=== PATIENT | female | born 1955 | race Caucasian/White ===

== ENCOUNTER 2023-01-25 09:15 | Emergency (ER) | payer MEDICARE, SELFPAY ==
[2023-01-25 09:20] VITALS: BP 154/96; PULSE 99; RESP 17; TEMP 36.6; O2SAT 99; BMI 31.6
--- NOTE | 2023-01-25 09:25 | ED_ITS ---
HPI - Wound/Laceration General Chief Complaint: Wound/Laceration Stated Complaint: L index finger laceration Time Seen by Provider: 01/25/23 09:25 Source: patient Mode of arrival: ambulatory Limitations: no limitations History of Present Illness HPI narrative: 67-year-old xjmiy-fjak-vdvumovg female presents to the ER for evaluation of a superficial laceration to the tip of her 2nd left digit, occurred cutting w atermelon just prior to arrival. Patient was unable to control the bleeding well at home so she came to the ER for evaluation. She states the cut is a small flap at the tip of her left index finger. She is able to extend and flex the finger. Denies numbness or tingling. She is unsure of her last tetanus shot. Onset (ago): minute(s) Extremity Location: left: hand ( Left index finger) Place: home Patient tetanus UTD: No Context: accidental Associated symptoms: pain Treatments prior to arrival: bandage Related Data Allergies Allergy/AdvReac Type Severity Reaction Status Date / Time penicillin V Allergy Unknown Seizure Verified 01/25/23 09:20 Dhsjrga-YWT-XcN Reductase Allergy Stomach Verified 01/25/23 09:20 Inhibitor Upset Penicillins [PENICILLINS] AdvReac Unknown UNKNOWN Verified 01/25/23 09:20 Review of Systems Review of Systems: Yes all other systems are reviewed and are negative Physical Exam Vital Signs: Vital Signs: Last Vital Signs Temp 98 F 01/25/23 09:20 Pulse 99 01/25/23 09:20 Resp 17 01/25/23 09:20 BP 154/96 H 01/25/23 09:20 Pulse Ox 99 01/25/23 09:20 O2 Del Method Room Air 01/25/23 09:20 BMI result Body Mass Index 31.6 Appearance: Alert. Oriented X3. No acute distress. HEENT: normal inspection CVS: Normal heart rate and rhythm. Pulses normal. Respiratory: No respiratory distress. Skin: Skin warm and dry. Normal skin color. Normal skin turgor. No rashes. Extremities: tip of the left index finger with a small, less than 1 cm flap at the distal pulp, no active bleeding. No nail involvement. Normal flexion of the PIP and DIP. Cap refill less than 3 seconds. Neuro: Oriented X 3. grossly normal, nonfocal Medical Decision Making Medical Decision Making MDM Narrative: 67-year-old female presenting to the ER for evaluation of a minor, partial avulsion to the tip of the left index finger sustained cutting watermelon just prior to arrival. No active bleeding. Wound is very superficial. No need for imaging today. No need for antibiotics. Wound was able to be cleansed with normal saline and secured closed with exofin skin glue. Patient was counseled on wound care. She was given a tetanus shot today. She is stable for discharge home. Differential Diagnosis Differential Diagnoses: The differential diagnosis associated with the presentation includes superficial avulsion, deep laceration, superficial laceration Independent Historian Clinical information obtained from an independent historian. History obtained from or confirmed by: Spouse Prescription Management I considered prescription management with: Pain Medication Procedures Laceration Laceration 1: Site: hand Side (If applicable): left Description: flap Depth: simple, single layer Pre-repair: irrigated extensively Skin layer closed with: other (exofin skin glue) Critical Care Time Critical Care Time Critical Care Time: No Discharge Plan Discharge Clinical Impression: Finger laceration Patient Disposition: Home, Self-Care Instructions: Finger Laceration (ED) Additional Instructions: Skin glue was used to close your wound. Do not get wet for 24-48 hours. Gently wash with soap and water then pat dry. This glue will come off on its own, usually within a week. Do not peel it off. Your given a tetanus shot today, this is good for 10 years. Follow-up with your doctor as needed.
--- NOTE | 2023-01-25 09:31 | PC.NURSE ---
pt a&ox3, pt states she cut her lt index finger with a watermelon knife, pt states she is unsure last tetanus shot, family at bedside, call naik within reach, will continue to monitor
--- NOTE | 2023-01-25 09:46 | MHC.EDTECH ---
left index finger was wrapped with stretch bandage with PA orders. pt tolerated well
[2023-01-25] MEDS: Diphth,Pertus(ACell),Tet Adult 0.5 ML SYRINGE IM (09:51)
== END 2023-01-25 09:56 | disposition home or self-care (01) ==
PROVIDERS: Emergency Provider Internal Medicine; PCP Internal Medicine
DX: S61.211A Laceration without foreign body of left index finger without damage to nail, initial encounter (principal); S60.512A Abrasion of left hand, initial encounter; W26.0XXA Contact with knife, initial encounter; Y93.G3 Activity, cooking and baking; Y92.000 Kitchen of unspecified non-institutional (private) residence as the place of occurrence of the external cause; Y99.9 Unspecified external cause status; Z79.899 Other long term (current) drug therapy; Z23 Encounter for immunization
CPT/HCPCS: 12001; 90471; 90715; 99282; 99283; 99284

== ENCOUNTER → 2023-08-22 09:15 | Outpatient (BNVA) | payer MEDICARE, SELFPAY | PROVIDERS: PCP Internal Medicine; Visit Provider Physician Assistant Surgical ==

== ENCOUNTER 2023-09-13 11:00 | Outpatient (AMB) | payer MEDICARE, SELFPAY ==
--- NOTE | 2023-09-13 10:42 | MHC.OFFVISWM ---
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 Her goal is to lose about 30 lbs. She reports first being concerned about her weight last year or two.. She has tried multiple methods of weight loss including WW and TOPS program without permanent results. She lives with her , depressed and suicidall.She is retired. She wakes at: 7am bed at 9-10 pm Breakfast: 8 am - bowl of berries with banana, toast or mini bagel with butter or jam, 1 hb egg. water Lunch: 12 pm- [facility] - 1-2 d/wk. Chicken breast with broccoli - may have rice or potatoes. At home - sandwich or turkey or chicken or meat loaf. popcorn.water or diet pepsi - decaf Dinner: 5pm - May have sandwich or chicken, broccoli and a carb.water After dinner: not regular snacks Other snacks: popcorn or mini pretzels, pistachios or other nuts - 1/4 cup. Dark chocolate covered almonds Liquids: no regular soda, no fruit juice Alcohol intake: very rare, tobacco: never, marijuana: none Exercise: rare walking. No acess to gym equipment. Started chair yoga daily last 5 days. IDALMIS:0 ESS:5 GERD:3 QOL:54 Assessment & Plan Assessment & Plan (1) Obesity: Code(s): E66.9 - Obesity, unspecified Plan: This is a 67 yo woman with obesity and pre DM who will start MWL program. Blood work not ordered. She will start M[facility] classes and watch all classes before her appt with Bhumi. Recent blood work June 2023 - TSH - normal, HgbA1c - 6.0, average glucose 126, cholesterol 233, high trigylcerides 300, HDL 51, LDL 124. Vit D- 2021 Does not like yogurt or cottage cheese. 1. Adequate sleep of 7-8 hours per night discussed 2. Healthy meal plan - stop all fruit juice All meals/MR's need to take 20 minutes to complete 7 am - 3 eggs and 1/2 c vegetables or Protein shake 12 pm -same as senior 6-4 -7 bread - Ivan Killer bread thin slice - 4 oz protein -4 - 6 oz vegetables 3 pm- fresh fruit 1 cup berries - hb egg, 2 TBL nut butter 6 pm- dinner of 6 oz lean protein, 6 oz vegetable, 1/2 cup of carbs Exercise -Chair Yoga daily. LS 2 miles - 3 d/ week, then increase to 5 d/week. Pt will weigh herself weekly. Next appt with Bhumi in 4 weeks and me in 8 weeks.. Text me with any questions and weekly weights. Patient is morbidly obese and is not considered stable at this time.?I spent a total of 60 minutes reviewing/updating records, examining the patient and counseling the patient on weight management as detailed above. (2) HTN (hypertension), benign: Code(s): I10 - Essential (primary) hypertension Plan: no changes (3) Pre-diabetes: Code(s): R73.03 - Prediabetes Plan: dietary changes (4) Hyperlipidemia: Code(s): E78.5 - Hyperlipidemia, unspecified Plan see above Telehealth Telehealth Location of provider rendering services: practice address Location of patient: address on file Patient Identification confirmed using: Name, : Yes Telehealth method: voice only Patient verbally consented to treatment: Yes Patient verbally consented to billing insurance company: Yes Patient informed of any privacy concerns related to visit: Yes Coding Level of Care Code Tele New Pt Level 5 (10930) Diagnoses Obesity E66.9 HTN (hypertension), benign I10 Pre-diabetes R73.03 Hyperlipidemia E78.5
== END 2023-09-13 12:02 | disposition home or self-care (01) ==
LOC: HO.HBS 11:24
PROVIDERS: PCP Internal Medicine; Visit Provider Physician Assistant
DX: E66.9 Obesity, unspecified (principal); Z68.34 Body mass index [BMI] 34.0-34.9, adult; I10 Essential (primary) hypertension; R73.03 Prediabetes; E78.5 Hyperlipidemia, unspecified
CPT/HCPCS: 99443

== ENCOUNTER → 2023-09-13 11:00 | Outpatient (BNVA) | payer MEDICARE, SELFPAY | PROVIDERS: PCP Internal Medicine; Visit Provider Physician Assistant ==

== ENCOUNTER 2023-10-14 10:25 | Outpatient (AMB) | payer MEDICARE, SELFPAY ==
--- NOTE | 2023-10-14 10:17 | MHC.AMNUTRGE ---
Intake VS Expanded 10/15/23 08:13 Height 5 ft 4 in Weight 197 lb BMI 33.8 Intake Visit Reasons: (TV) Initial Nutrition [facility] [employer] Driver Required: No Allergies shellfish derived Allergy (Severe, Verified 10/15/23 08:12) Facial Swelling penicillin V Allergy (Unknown, Verified 01/25/23 09:20) Seizure Aeuphlc-VNA-HqE Reductase Inhibitor Allergy (Verified 01/25/23 09:20) Stomach Upset Penicillins [PENICILLINS] Adverse Reaction (Unknown, Verified 01/25/23 09:20) UNKNOWN HPI Nutrition Presentation Details Medical weight loss starting weight 199# current weight 197# Reason for consult elevated BMI Food allergies/aversions Yes (shellfish - swelling in face, welts on the body ) Diet Assmnt Details I am not doing as well as I had hoped ; feeling discouraged by rate of weight loss. it is important for her to be able to go out to restaurants and socialize and she acknowledges this may have an impact on her weight loss. We talked about doing the best she can making food choices 2 eggs, imelda killer bread Lunch: 1/2 sandwich with chicken - pt asks about using bar/shakes dinner last night: veggie pizza and german fries baked sweet potato, steamed carrots and meatloaf (made w crackers, egg) Exercise: Minimal but is looking for more resources Dietary counseling reduction Who buys your food self Who prepares/cooks your food self Lifestyle Eating out 4 or more times/week Food frequency Dairy: daily, Fruit: daily, Vegetables: daily, Grains/pasta/breads/cereal (carbs): daily, Meats/poultry/fish (protein): daily, Meat substitutes/nuts/seeds/legumes: daily, Processed foods/meats: daily, Restaurants/fast foods: daily (dislikes fish ), Water: daily, Juice: never, Coffee: never and Sports/energy drinks: never Diagnosis Nutrition problem #1 overweight/obesity As related to (etiology) #1 excess energy intake and physical inactivity As evidenced by (sign/symptom) #1 high BMI Monitoring/Goals Nutrition problem monitoring total energy intake, level of knowledge/skill, total PRO intake, total CHO intake, weight and oral fluids Outcome progress progressing Learning/Education Readiness to learn excellent Stages of change action Educational materials provided Yes Most Recent Diabetes Results: No Data to Display Assessment & Plan Assessment & Plan (1) Obesity (BMI 30-39.9): Code(s): E66.9 - Obesity, unspecified Plan provided exercise resources, discussed using a shake or bar for lunch as she doesn't care to eat lunch anyway, provided educational nutrition handouts. Telehealth Telehealth Location of provider rendering services: practice address Location of patient: address on file Patient Identification confirmed using: Name, : Yes Telehealth method: voice only Patient verbally consented to treatment: Yes Patient verbally consented to billing insurance company: Yes Patient informed of any privacy concerns related to visit: Yes Minutes spent on Phone/Video with Pt.: 50 Coding Level of Care Code Nutr Indiv Intake (03268) Diagnoses Obesity (BMI 30-39.9) E66.9 Time Spent (min) 50
[2023-10-15 08:13] VITALS: BMI 33.8
== END 2023-10-14 11:03 | disposition home or self-care (01) ==
LOC: HO.HBS 10:26
PROVIDERS: PCP Internal Medicine; Visit Provider Dietitian, Registered
DX: E66.9 Obesity, unspecified (principal)

== ENCOUNTER → 2023-10-14 10:25 | Outpatient (BNVA) | payer MEDICARE, SELFPAY | PROVIDERS: PCP Internal Medicine; Visit Provider Dietitian, Registered | DX: E66.9 Obesity, unspecified (principal); Z68.33 Body mass index [BMI] 33.0-33.9, adult | CPT/HCPCS: 97802 ==

== ENCOUNTER 2023-11-15 10:00 | Outpatient (AMB) | payer MEDICARE, SELFPAY ==
--- NOTE | 2023-11-15 09:09 | A.OFFVIS_ITS ---
Intake VS Expanded 11/15/23 10:06 Height 5 ft 4 in Weight 193 lb 6 oz BMI 33.2 Intake Visit Reasons: TV F/U M[facility] Allergies shellfish derived Allergy (Severe, Verified 10/15/23 08:12) Facial Swelling penicillin V Allergy (Unknown, Verified 01/25/23 09:20) Seizure Qvvctft-UZN-MnD Reductase Inhibitor Allergy (Verified 01/25/23 09:20) Stomach Upset Penicillins [PENICILLINS] Adverse Reaction (Unknown, Verified 01/25/23 09:20) UNKNOWN HPI HPI Comments History of Present Illness Details 67 yo woman started MWL program August at 199.8 lbs with the intention of losing 30 lbs. She saw Bhumi last month. TBWL is 3.4 lbs or 1.7%. Stopped all fruit juice, and deserts. breakfast -7am fruit with 2 hb eggs and 1 slice Ivan Killer bread with olive oil margarine 12 - 1pm - ham or turkey sandwich, popco rn. water or diet Pepsi 5-6 pm - protein bar or popcorn and wate r The following was the plan: 7 am - 3 eggs and 1/2 c vegetables or Protein shake 12 pm -same as senior 6-4 -7 bread - Ivan Killer bread thin slice - 4 oz protein -4 - 6 oz vegetables 3 pm- fresh fruit 1 cup berries - hb egg, 2 TBL nut butter 6 pm- dinner of 6 oz lean protein, 6 oz vegetable, 1/2 cup of carbs Exercise - none recommend 30 minutes 5d/ week. Never stated LS videos Assessment & Plan Assessment & Plan (1) Obesity: Code(s): E66.9 - Obesity, unspecified Plan: Pt in MWL program with minimal weight loss, no exericse yet and not unde rstanding the meal plan. We discussed getting 75 - 80 gram protein per day in 3 divided meals per day. Goalis 30 lb weight loss. Start LS 1 mile videos or fast walks outside x30 minutes daily or at least 5 d/ wek for total of 2,000 leyla burned per week. Patient is still obese and is not considered stable at this time. I spent 30 minutes in total speaking with the patient via video conference counseling , reviewing records and charting in patients chart. . Telehealth Telehealth Location of provider rendering services: practice address Location of patient: address on file Patient Identification confirmed using: Name, : Yes Telehealth method: video Patient verbally consented to treatment: Yes Patient verbally consented to billing insurance company: Yes Patient informed of any privacy concerns related to visit: Yes Coding Level of Care Code Tele Est Pt Level 4 (94963) Diagnoses Obesity E66.9
[2023-11-15 10:06] VITALS: BMI 33.2
== END 2023-11-15 10:37 | disposition home or self-care (01) ==
LOC: HO.HBS 10:37
PROVIDERS: PCP Internal Medicine; Visit Provider Physician Assistant
DX: E66.9 Obesity, unspecified (principal); Z68.33 Body mass index [BMI] 33.0-33.9, adult
CPT/HCPCS: 99214

== ENCOUNTER → 2023-11-15 10:00 | Outpatient (BNVA) | payer MEDICARE, SELFPAY | PROVIDERS: PCP Internal Medicine; Visit Provider Physician Assistant | DX: E66.9 Obesity, unspecified (principal) ==